=== PATIENT | male | born 2000 | race Hispanic/Latino ===

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

== ENCOUNTER 2022-12-04 00:26 | Emergency (ER) | payer SELFPAY ==
[2022-12-04] MEDS ORDERED: Metoclopramide HCl 10 MG/2 ML VIAL ONE (01:40)
[2022-12-04] MEDS ORDERED: Ketorolac Tromethamine 30 MG/ML VIAL ONE (01:40)
== END 2022-12-04 02:47 | disposition home or self-care (01) ==
LOC: ERS 00:26
DX: R51.9 Headache, unspecified (principal); F17.290 Nicotine dependence, other tobacco product, uncomplicated
CPT/HCPCS: 96361; 96374; 96375; J1885; J2765